=== PATIENT | female | born 1975 | race Hispanic/Latino ===

== ENCOUNTER → 2016-05-31 | Outpatient (REF) | payer OTHER | LOC: M SFHCWAGY 13:58 | PROVIDERS: ATTEND Nurse Practitioner Women's Health | DX: Z12.4 Encounter for screening for malignant neoplasm of cervix (principal) ==

== ENCOUNTER → 2016-05-31 | Outpatient (CLI) | payer OTHER ==
--- NOTE | 2016-05-31 15:13 | REPMRS ---
Patient History The patient states she had a clinical breast exam in 05/2016. Family history of breast cancer in mother at age 39, breast cancer in maternal aunt at age 31, breast cancer in paternal aunt at age 50 or over, breast cancer in maternal aunt, ovarian cancer in maternal grandmother at age 50 or over, and prostate cancer in paternal uncle at age 50 or over. Digital Woman Screen Mammo: May 31, 2016 - Exam #: [id number] Bilateral CC and MLO view(s) were taken. Technologist: Kadi Valenzuela, Technologist Prior study comparison: August 30, 2014, digital woman screen mammo performed at [facility]. July 17, 2013, digital woman screen mammo performed at [facility]. June 23, 2012, digital woman screen mammo performed at [facility]. May 31, 2011, digital woman screen mammo performed at [facility]. FINDINGS: There are scattered fibroglandular densities. There has been no change in the appearance of the mammogram from the prior studies. There is a mild amount of residual fibroglandular tissue which is fairly symmetric. There is no interval development of dominant mass, architectural distortion, or clustered microcalcification suggestive of malignancy. Scattered lymph nodes are seen in the axillae. No significant changes when compared with prior studies. ASSESSMENT: BI-RADS/ACR category 2 mammogram. Benign finding(s). Recommendation Routine screening mammogram in 1 year (for women over age 40). This mammogram was interpreted with the aid of an FDA-approved computer-aided dectection system. A. Negative x-ray reports should not delay biopsy if a dominant or clinically suspicious mass is present. B. Four to eight percent of cancers are not identified by mammography. C. Adenosis and dense breast may obscure an underlying neoplasm. Electronically Signed By: Mahendra Reis MD 05/31/16 [id number]
== END ==
LOC: M WHC 13:20
PROVIDERS: ATTEND Nurse Practitioner Women's Health
DX: Z12.31 Encounter for screening mammogram for malignant neoplasm of breast (principal)

== ENCOUNTER → 2017-05-01 | Outpatient (CLI) | payer OTHER | LOC: M LRY 17:46 | DX: M79.672 Pain in left foot (principal) | CPT/HCPCS: 73630 ==

== ENCOUNTER → 2017-09-18 | Outpatient (REF) | payer OTHER ==
[2017-09-18 23:53] LABS: CHLAMYDIA DNA AMPLIFICATION NEGATIVE (NEGATIVE); GC DNA AMPLIFICATION NEGATIVE (NEGATIVE)
== END ==
LOC: M SFHCLERA 10:49
DX: R35.0 Frequency of micturition (principal)

== ENCOUNTER 2018-06-27 10:45 | Day surgery (SDC) | payer BC ==
[~2018-06-27] VITALS: Ht 157.5 cm; Wt 116.6 kg
[~2018-06-27 10:45] MED LIST: AZAT50TA2 PO; CYCL10TA PO; FAMO40TA3 PO; HYDR200T3 PO; LISI10TA2 PO; LR 1,000 ML IV SCH; METO1TAB7 PO; NAPR-885 PO; NORT50CA PO; [UNRECOGNIZED DRUG - OTHER] PO
[2018-06-27 11:08] LABS: HEMATOCRIT 38.5 % (36.0-47.0); HEMOGLOBIN 11.7 g/dl (12.0-15.5); MEAN CORPUSCULAR HEMOGLOBIN 25.4 pg (27.0-33.0); MEAN CORPUSCULAR HGB CONC 30.4 g/dl (32.0-36.5); MEAN CORPUSCULAR VOLUME 83.7 fl (80.0-96.0); PLATELET COUNT, AUTOMATED 393 10^3/uL (150-450); WHITE BLOOD COUNT 6.2 10^3/uL (4.0-10.0)
[2018-06-27 11:21] LABS: URINE PREG TEST NEGATIVE (NEGATIVE)
[2018-06-27] MEDS ORDERED: METOPROLOL SUCC *XL* 25MG TAB (TopROL *XL*) As Ordered ONE (12:18)
[2018-06-27] MEDS ORDERED: BUPIVACAINE HCL 0.25% 10 ML VIAL As Ordered ONE (12:26)
[2018-06-27] MEDS ORDERED: METHYLENE BLUE 0.5% (5MG/ML) 10 ML AMP (PROVAYBLUE)(Q9968 PER 1MG) As Ordered ONE (12:27)
[2018-06-27] MEDS ORDERED: OXYC1TAB23 PO (12:37)
[2018-06-27] MEDS ORDERED: IBUP-1022 PO (12:38)
[2018-06-27] MEDS ORDERED: METOPROLOL SUCC (TopROL XL) 50MG **XL** TAB PO ONE (12:45)
[2018-06-27] MEDS ORDERED: METOCLOPRAMIDE INJ 10MG/2ML VIAL (J2765) As Ordered ONE (13:16)
[2018-06-27] MEDS ORDERED: PROPOFOL 200 MG/20 ML VIAL As Ordered ONE (13:16)
[2018-06-27] MEDS ORDERED: ROCURONIUM BROMIDE 50 MG/5 ML VIAL As Ordered ONE ×2 (13:16→13:32)
[2018-06-27] MEDS ORDERED: fentaNYL 250 MCG/5 ML INJECTION (J3010) As Ordered ONE (13:16)
[2018-06-27] MEDS ORDERED: KETOROLAC 60 MG/2 ML VIAL (J1885) As Ordered ONE (13:16)
[2018-06-27] MEDS ORDERED: MIDAZOLAM INJ 2 MG/2 ML VIAL (J2250) As Ordered ONE (13:16)
[2018-06-27] MEDS ORDERED: ONDANSETRON 4MG/2ML VIAL (J2405) As Ordered ONE (13:16)
[2018-06-27] MEDS ORDERED: dexameTHASONE 4 MG/ML 1ML VIAL (J1100) As Ordered ONE (13:16)
[2018-06-27] MEDS ORDERED: SUGAMMADEX SODIUM 500 MG/5 ML VIAL (BRIDION) As Ordered ONE (13:16)
[2018-06-27] MEDS ORDERED: LIDOCAINE 2% INJ 100 MG/5 ML SDV (FOR ANES.) As Ordered ONE (13:16)
[2018-06-27] MEDS ORDERED: HYDROmorphone HCL 2 MG/ML 1ML VIAL (J1170) As Ordered ONE (13:33)
[2018-06-27] MEDS ORDERED: ACETAMINOPHEN 1000MG 100ML IV BTL (OFIRMEV) (J0131 PER 10MG) As Ordered ONE (14:38)
[2018-06-27] MEDS ORDERED: NORCO, ANEXSIA 5/325MG TABLET (HYDROcodone/ACETAMINOPHEN) PO PRN (15:45)
[2018-06-27] MEDS ORDERED: ONDANSETRON 4MG/2ML VIAL (J2405) IV PRN (15:45)
[2018-06-27] MEDS ORDERED: fentaNYL 100 MCG/2 ML INJECTION (J3010) IV PRN (15:45)
[2018-06-27] MEDS ORDERED: PERCOCET 5MG/325MG TAB PO PRN ×2 (15:45)
[2018-06-27] MEDS ORDERED: MORPHINE 4 MG/ML 1ML VIAL/SYRINGE (J2270) IV PRN (15:45)
[2018-06-27] MEDS ORDERED: LR 1,000 ML IV SCH (15:45)
[2018-06-27 17:00] VITALS: BP 143/60
[2018-06-27 17:30] VITALS: BP 140/52
[2018-06-27 18:30] VITALS: BP 140/61
[2018-06-27 19:26] VITALS: BP 130/58
[2018-06-27] MEDS: ONDANSETRON 4MG/2ML VIAL (J2405) IV PRN ×2 (19:31→23:29)
[2018-06-27] MEDS: KETOROLAC 30 MG/ML VIAL (J1885) IV PRN (19:40)
[2018-06-27] MEDS: LR 1,000 ML IV SCH ×2 (19:51→23:30)
[2018-06-27 20:30] VITALS: BP 150/90
[2018-06-27] MEDS ORDERED: NORTRIPTYLINE 25 MG CAP PO SCH (21:00)
[2018-06-27] MEDS ORDERED: FAMOTIDINE 20 MG TAB PO SCH (21:00)
[2018-06-27 21:30] VITALS: BP 146/88
[2018-06-27] MEDS: CYCLOBENZAPRINE 10 MG TAB PO SCH (21:32)
[2018-06-27] MEDS: DOCUSATE SODIUM 100 MG CAP PO SCH (21:32)
[2018-06-28] VITALS: BP 142/76
[2018-06-28 04:00] VITALS: BP 140/72
[2018-06-28] MEDS: KETOROLAC 30 MG/ML VIAL (J1885) IV PRN (05:18)
[2018-06-28 07:42] LABS: HEMATOCRIT 29.8 % (36.0-47.0); MEAN CORPUSCULAR HEMOGLOBIN 25.6 pg (27.0-33.0); MEAN CORPUSCULAR HGB CONC 30.9 g/dl (32.0-36.5); MEAN CORPUSCULAR VOLUME 82.8 fl (80.0-96.0); PLATELET COUNT, AUTOMATED 312 10^3/uL (150-450); WHITE BLOOD COUNT 9.3 10^3/uL (4.0-10.0)
[2018-06-28 08:00] VITALS: BP 158/83
[2018-06-28 08:05] LABS: HEMOGLOBIN 9.2 g/dl (12.0-15.5)
[2018-06-28] MEDS: DOCUSATE SODIUM 100 MG CAP PO SCH (08:39)
[2018-06-28] MEDS: CYCLOBENZAPRINE 10 MG TAB PO SCH (08:39)
--- NOTE | 2018-07-01 08:30 | RO ---
DATE OF PROCEDURE: 06/27/2018 PREOPERATIVE DIAGNOSIS: Menorrhagia, fibroids. POSTOPERATIVE DIAGNOSIS: Menorrhagia, fibroids. PROCEDURE: Robotic-assisted laparoscopy hysterectomy. Bilateral salpingo-oophorectomy. Cystoscopy. SURGEON: Dr. Nikolas Fowler INSTALLER INTERIOR ASSEMBLIES: Emilia Julien NP ANESTHESIA: General endotracheal. ESTIMATED BLOOD LOSS: 300 mL. URINE OUTPUT: 150 mL. FINDINGS: Enlarged irregular fibroid uterus. 5 cm cyst involving the right ovary. Normal appearing left ovary and fallopian tube. Omental adhesions anterior abdominal wall and bladder adhesions lower uterine segment. Small incisional hernia at the site of prior section. OPERATIVE SUMMARY: The patient taken to the operating room where general endotracheal anesthesia was induced. She was prepped and draped in sterile fashion in the dorsal lithotomy position. A Henriquez catheter was placed. A [employer] uterine manipulator was placed. A periumbilical incision made with a scalpel. A Veress needle was placed through this incision while tenting up on the skin of the abdomen. An intra-abdominal location of the Veress needle was assessed with the use of a saline filled syringe. A pneumoperitoneum was created. The Veress needle was removed. An 8 mm trocar using Visiport and 5 mm scope was inserted through this incision. Three 8 mm suprapubic ports were placed under direct visualization. The patient was placed in Trendelenburg position. The da [employer] surgical robot was docked to the ports. Using the fenestrated bipolar instrument and vessel sealer, dense adhesions of omentum to the anterior abdominal wall were taken down with a combination of blunt and sharp dissection. The IP ligaments were grasped, coagulated and incised with the vessel sealer. The broad ligament attachments and round ligaments were coagulated and incised in similar fashion bilaterally. The anterior and posterior leaves of the broad ligament were . Bladder flap was created with a combination of blunt and sharp dissection. The uterine vessels were coagulated and incised. Using the monopolar Endoshears, a colpotomy was created in the upper vagina at the level of the VCare cupt. This was extended circumferentially around the vagina. The specimen was removed through the vagina which included the uterus, cervix, fallopian tubes and ovaries bilaterally. The vaginal cuff was closed with #1 V-Loc suture in a running locked fashion. The pelvis was copiously irrigated. Good hemostasis was noted. The omentum which was extensively excised from the anterior abdominal wall was observed and noted to be hemostatic. All instruments were removed. The patient received methylene blue dye intravenously. A cystoscopy was performed using a 70 degrees cystoscope. Bilateral ureteral jets were identified. There was no evidence of injury to the bladder. All instruments were removed. The skin was closed with #4-0 Monocryl subcuticular sutures. Sponge, instrument and needle counts were correct. Emilia Julien NP, assisted with all aspects of the procedure from beginning to end. She assisted with positioning the patient and inserting the ports, manipulating the uterus throughout the procedure and removing the uterus at the end of the procedure. She successfully helped close the ports.
[2018-07-04] MEDS ORDERED: OXYC1TAB23 PO (10:23)
== END 2018-06-28 12:30 | disposition home or self-care (01) ==
LOC: M SDC 10:45 → M PED 16:30 → M SDC 06-28 12:30
PROVIDERS: ATTEND Specialist
DX: N92.0 Excessive and frequent menstruation with regular cycle (principal); N83.291 Other ovarian cyst, right side; N73.6 Female pelvic peritoneal adhesions (postinfective); D25.1 Intramural leiomyoma of uterus; D25.2 Subserosal leiomyoma of uterus; I10 Essential (primary) hypertension; D64.9 Anemia, unspecified; M06.9 Rheumatoid arthritis, unspecified; M79.7 Fibromyalgia; M32.10 Systemic lupus erythematosus, organ or system involvement unspecified; Z79.899 Other long term (current) drug therapy
CPT/HCPCS: 36415; 58571; 84703; 85027; 86850; 86900; 86901; 88307; 96361; 96374; 96375; 96376; J0131; J0690; J1100; J1170; J1885; J2250; J2405; J2765; J3010; Q9968

== ENCOUNTER → 2018-07-09 | Outpatient (REF) | payer BC ==
[~2018-07-09] MED LIST changes: +IBUP-1022 PO; -LR 1,000 ML IV SCH; +OXYC1TAB23 PO
== END ==
LOC: M LAB REF 17:57
PROVIDERS: ATTEND Specialist
DX: R30.0 Dysuria (principal)

== ENCOUNTER → 2019-02-17 | Outpatient (CLI) | payer BC ==
[~2019-02-17] MED LIST changes: +LISI10TA15 PO; -LISI10TA2 PO
--- NOTE | 2019-02-17 09:21 | REPMRS ---
Patient History The patient states she had a clinical breast exam in 2018. Patient is postmenopausal. Family history of breast cancer at age 39 in mother, breast cancer at age 31 in maternal aunt, breast cancer at age 50 or over in paternal aunt, ovarian cancer at age 50 or over in maternal grandmother, prostate cancer at age 50 or over in paternal uncle, breast cancer in maternal aunt. Digital Woman Screen Mammo: February 17, 2019 - Exam #: [id number] Bilateral CC and MLO view(s) were taken. Technologist: Anastacia Montague, Technologist Prior study comparison: May 31, 2016, digital woman screen mammo performed at [facility]. August 30, 2014, digital woman screen mammo performed at [facility]. July 17, 2013, digital woman screen mammo performed at [facility]. FINDINGS: There are scattered fibroglandular densities. There has been no change in the appearance of the mammogram from the prior studies. There is a mild amount of scattered fibroglandular density which is fairly symmetric. There is no interval development of dominant mass, architectural distortion, or grouped microcalcification suggestive of malignancy. 3-D tomosynthesis shows no additional findings. Assessment: BI-RADS/ACR category 1 mammogram. Negative Mammogram. Recommendation Breast MRI of both breasts in 6 months. Routine screening mammogram of both breasts in 1 year (for women over age 40). This patient's Lifetime Breast Cancer Risk is estimated at 29.7 %. Annual screening Breast MRI scanniing is recommended for patient's whose lifetime risk assessment is over 20%. This mammogram was interpreted with the aid of an FDA-approved computer-aided dectection system. Electronically Signed By: Winston Yan MD 02/17/19 0986
== END ==
LOC: M WHC 07:53
PROVIDERS: ATTEND Nurse Practitioner Women's Health
DX: Z12.31 Encounter for screening mammogram for malignant neoplasm of breast (principal); Z80.3 Family history of malignant neoplasm of breast; Z80.41 Family history of malignant neoplasm of ovary; Z80.42 Family history of malignant neoplasm of prostate